=== PATIENT | female | born 1955 | race Caucasian/White ===

== ENCOUNTER 2019-11-13 10:21 | Emergency (ER) | payer OTHER, SELFPAY ==
--- NOTE | ~2019-11-13 | XR_ITS ---
XR foot RT min 3V DATE: 11/13/2019 10:55 INDICATION: Right foot pain following an injury one week ago TECHNIQUE: 4 views COMPARISON: None FINDINGS: There is plantar and minimal posterior calcaneal enthesopathy. There is moderately prominent osteoarthritic change at the first metatarsophalangeal joint. There is hallux valgus and bunion deformity. No fracture, dislocation, periosteal reaction or bone destruction is detected. IMPRESSION: Osteoarthritis at first metatarsophalangeal joint Calcaneal enthesopathy Hallux valgus and bunion deformity Reviewed, dictated and finalized at location A.
[2019-11-13 10:43] VITALS: BP 128/89; PULSE 62; RESP 16; TEMP 37.1; O2SAT 99
--- NOTE | 2019-11-13 11:02 | ED.LOWEXIN ---
HPI - Extremity Injury (Lower) General Chief Complaint: Extremity Injury, Lower Stated Complaint: Fall right ankle/foot Time Seen by Provider: 11/13/19 11:07 Source: patient and RN notes reviewed Mode of arrival: ambulatory Limitations: no limitations History of Present Illness HPI Narrative: 63-year-old female who presents to express care with complaints of pain to the dorsal aspect of her right foot along distal 3rd,4th and 5th metatarsal and upper toes after rolling her foot when she missed last step. Patient states that she hit the corner of her left side of face on banister with bruising noted under left eye, minimal swelling denies any acute pain, dizziness, or any change in her visual acuity. Patient states that her right foot pain is a 10/10, has been applying an enzo wrap to her right foot and has taken Ibuprofen. Patient is on Coumadin therapy and cautioned patient that she should not take Ibuprofen or Aleve, only use Tylenol for her discomfort. patient is able to put weight on right foot but can only stand partial weight bearing at this time without acute pain. MD complaint: foot injury (right ) Onset (ago): week(s) (1) Injury: Right: foot Type of Injury: other (rolled right foot) Place: home Severity: severe Severity scale (1-10): >10 Relieving factors: rest Exacerbating factors: weight bearing and movement Context: fall Associated symptoms: swelling and able to partially bear weight Other symptoms: other (bruising under left eye) Treatments prior to arrival: bandage (enzo) and NSAIDS Related Data Home Medications Medication Instructions Recorded Confirmed albuterol sulfate INHALATION 11/13/19 albuterol sulfate [Ventolin HFA] INHALATION 11/13/19 alprazolam 11/13/19 carvedilol 11/13/19 escitalopram oxalate mg 11/13/19 hydrochlorothiazide 11/13/19 ramipril mg 11/13/19 rosuvastatin mg 11/13/19 warfarin 11/13/19 warfarin 11/13/19 Allergies Allergy/AdvReac Type Severity Reaction Status Date / Time Sulfa (Sulfonamide Allergy Mild Verified 08/28/09 09:22 Antibiotics) prochlorperazine Allergy Unknown Verified 11/06/08 13:00 promethazine Allergy Unknown Verified 11/06/08 13:00 COMPAZINE Allergy Unknown Uncoded 01/15/03 13:41 Review of Systems Review of Systems: Narrative: CONSTITUTIONAL: Denies fever, chills, or sweats. EYES: Denies visual changes, redness, or discharge. ENT: Denies rhinorrhea, congestion, sore throat, or otalgia. CARDIOVASCULAR: Denies chest pain, palpitations, or edema. RESPIRATORY: Denies cough or dyspnea. GASTROINTESTINAL: Denies abdominal pain, nausea, vomiting, or diarrhea. GENITOURINARY: Denies dysuria or hematuria. SKIN: Denies rash or itching. MUSCULOSKELETAL: Denies back pain, joint pain, or myalgia, positive for dorsal lateral aspect of right foot pain from rolling right foot. NEUROLOGIC: Denies headache, numbness, or weakness. PSYCHIATRIC: Denies anxiety or depression. All systems reviewed & are unremarkable except as noted in HPI and below PMFSH Past Medical History Medical History (Updated 11/13/19 @ 12:01 by Sandra Childers NP) Angina pectoris, unspecified Anxiety and depression Asthma History of Coumadin therapy Hyperlipidemia Hypertension Sleep apnea Surgical History Surgical History (Updated 11/13/19 @ 12:01 by Sandra Childesr NP) H/O tubal ligation History of aortic valve replacement Social History Social History (Updated 11/13/19 @ 12:16 by Sandra Childers NP) Smoking packs per day: 0.25 Smoking cigarettes per day: 5.0 Years smoked: 20 Smoking pack-years: 5.00 Smoking status: Current every day smoker Tobacco type: cigarettes Living arrangements: with family Gender identity (if verbalized by the patient): Female Comments At time of signature, agree with nursing past medical, surgical, social history. There is no relevant family history pertinent to the presenting complaint Exam Narrative: Exam Narrative: GEN
== END 2019-11-13 11:30 | disposition home or self-care (01) ==
PROVIDERS: Emergency Provider Registered Nurse; PCP Family Medicine
DX: S93.601A Unspecified sprain of right foot, initial encounter (principal); F41.9 Anxiety disorder, unspecified; F32.9 Major depressive disorder, single episode, unspecified; E78.5 Hyperlipidemia, unspecified; I10 Essential (primary) hypertension; G47.30 Sleep apnea, unspecified; Z79.01 Long term (current) use of anticoagulants; Z95.2 Presence of prosthetic heart valve; F17.210 Nicotine dependence, cigarettes, uncomplicated; M19.071 Primary osteoarthritis, right ankle and foot; M77.31 Calcaneal spur, right foot; M20.11 Hallux valgus (acquired), right foot; M21.611 Bunion of right foot; X50.9XXA Other and unspecified overexertion or strenuous movements or postures, initial encounter
CPT/HCPCS: 73630; 99213; G0463

== ENCOUNTER 2021-07-01 10:38 | Outpatient (CLI) | payer OTHER, SELFPAY ==
--- NOTE | ~2021-07-01 | US_ITS ---
EXAMINATION: US pelvic complete w TV DATE: 07/01/2021 11:49 INDICATION: Vaginal discharge TECHNIQUE: Multiple transabdominal and endovaginal sonographic images of the pelvis were obtained. COMPARISON: None. FINDINGS: The uterus measures 7.2 x 3.4 x 3.7 cm. The endometrial complex measures 4 mm. There is a s mall amount of fluid in the endometrial canal. The left ovary is not visualized however no left adnex al abnormality is seen. The right ovary measures 2.2 x 1.6 x 1.5 cm. There is normal vascular flow in the right ovary. There is no free fluid in the pelvis. IMPRESSION: 1. Small amount of fluid in the endometrial canal of unclear etiology or significance. Reviewed, dictated and finalized at location A. ER CARE CASE MANAGER IMPRESSION: 1. Small amount of fluid in the endometrial canal of unclear etiology or signif icance.
== END 2021-07-01 10:39 | disposition home or self-care (01) ==
LOC: ANHIMG 10:42
PROVIDERS: PCP Family Medicine; Visit Provider Family Medicine
DX: N93.9 Abnormal uterine and vaginal bleeding, unspecified (principal)
CPT/HCPCS: 76830; 76856

== ENCOUNTER 2021-09-28 00:18 | Day surgery (SDC) | payer OTHER, SELFPAY ==
--- NOTE | 2021-09-24 12:25 | PM.IMHP ---
H&P: HPI History of Present Illness Date/Time: 09/24/21 12:25 She had brown dark bleeding for about a year but recently stopped after recent pap smear. No pelvic pain Chief Complaint: Postmenopausal bleeding Review of Systems Review of Systems: All systems reviewed & are unremarkable except as noted in HPI and below PMFSH Past Medical History Medical History Angina pectoris, unspecified Anxiety and depression Asthma GABRIELA (generalized anxiety disorder) History of Coumadin therapy History of CVA (cerebrovascular accident) Hyperlipidemia Hypertension detention (current) use of anticoagulants MDD (major depressive disorder), recurrent episode Melanoma Missed x3 OCD (obsessive compulsive disorder) Sleep apnea Tobacco abuse Vaginal delivery x3 Surgical History Surgical History H/O tubal ligation History of aortic valve replacement 2010, mechanical heart valve History of surgical removal of lesion 2 spots for skin cancer removed Family History Family History Son Asthma Other Asthma cousin Mother Leukemia Hypertension Sibling Hypertension brother Other Lung cancer Social History Social History Social History: Smoking status: Current every day smoker Tobacco type: cigarettes Second hand tobacco smoke exposure: Yes Alcohol intake: current Alcohol use details: 2 drinks daily Substance use: never Substance use type: does not use Gender identity (if verbalized by the patient): Female Sexual Orientation (if Verbalized by the Patient): Straight or Heterosexual Agree to blood products: Yes Meds Home Medications and Allergies Home Medications Medication Instructions Recorded Confirmed Type escitalopram oxalate 20 mg tablet 20 mg PO DAILY #90 tablet 08/05/20 09/21/21 Rx warfarin 2 mg tablet 2 mg PO DAILY #90 tablet 10/03/20 09/21/21 Rx ramipril 10 mg capsule 10 mg PO BID #180 cap 11/04/20 09/21/21 Rx alprazolam 0.5 mg tablet 0.5 mg PO TID #90 tablet 02/17/21 09/21/21 Rx aripiprazole 5 mg tablet 5 mg PO DAILY 02/24/21 09/21/21 History albuterol sulfate 90 mcg/actuation 2 puff INHALATION Q4H PRN #18 g 04/10/21 09/21/21 Rx aerosol inhaler fluoxetine 40 mg capsule 40 mg PO DAILY 07/15/21 09/21/21 History magnesium PO 07/15/21 09/21/21 History melatonin 5 mg capsule mg PO 07/15/21 09/21/21 History carvedilol 25 mg tablet See Rx Instructions .ROUTE 07/29/21 09/21/21 Rx .COMPLEX #270 tablet montelukast 10 mg tablet 10 mg PO QHS #30 tablet 07/29/21 09/21/21 Rx budesonide-formoterol HFA 80 1 puff INHALATION Q12H #10.2 g 08/17/21 09/21/21 Rx mcg-4.5 mcg/actuation aerosol inhaler rosuvastatin 10 mg tablet 10 mg PO DAILY #90 tablet 08/21/21 09/21/21 Rx furosemide 20 mg tablet See Rx Instructions .ROUTE 08/31/21 09/21/21 Rx .COMPLEX #30 tablet Allergies Allergy/AdvReac Type Severity Reaction Status Date / Time prochlorperazine Allergy Mild vision Verified 09/21/21 11:08 blurred promethazine Allergy Mild vision Verified 09/21/21 11:08 blurred Sulfa (Sulfonamide Allergy Mild Abdominal Verified 09/21/21 11:08 Antibiotics) Pain, N/V COMPAZINE Allergy Mild vision Uncoded 06/23/21 10:25 blurred Exam Const: General: healthy appearing, no acute distress, alert and awake Resp: Auscultation: clear to auscultation bilaterally Cardio: Rate: regular rate Rhythm: regular rhythm GI: Inspection: non-distended GI Palp: Yes Soft to palpation and No Tenderness to palpation present (GI) : Bimanual exam- vagina & uterus: normal bimanual exam, uterine size normal, uterine mobility normal, non-tender and soft Bimanual Exam- Adnexa, other: normal adnexae, no masses and No a
[2021-09-28 08:13] VITALS: BMI 30.2
--- NOTE | 2021-09-28 08:23 | PC.NURSE ---
Report to the Outpatient Waiting Room, entrance under the green pavilion located off [facility], at time _1215__ on date _06-26-2801_. OR Time: __1415__. - You and your visitor will be asked a series of questions to screen for COVID 19 for your protection. - A mask is required within the hospital. Preoperative COVID Testing Requirements: No COVID Test needed if: (proof is required; if not received patient will have Rapid Test prior to entry) - Patient has received COVID Vaccine at least 14 days prior to procedure date or - Patient has positive COVID test result within last 90 days of surgery date. COVID Test needed if above criteria is not met If not COVID vaccinated a COVID test must be conducted within 72 hours of surgery and patient is asked to isolate self from time of testing until procedure. You will go to the [facility] for your COVID testing. The [facility] is located at the corner of [address] [facility]. You will only be called if COVID results are positive and your surgeon may reschedule your elective surgery date. Patients may have clear liquids (water, carbonated beverages, clear teas, apple juice) until 3 hours prior to surgery with a maximum of 20 ounces. - No food from midnight until time of surgery - Infants may have breast milk until 4 hours before surgery, formula 6 hours prior to surgery. - Children will be allowed to drink immediately following surgery. If applicable, please bring a bottle or sippy cup to assist with drinking. Juice, water, soda, and popsicles are readily available. For infants on formula, please bring formula the day of surgery. Pacifiers are allowed. Take the following medications with a SIP of water the morning of surgery: __Alprazolam, Aripiprazole, Carvidilol, Escitalopram, Fluoxetine Medications to discontinue per physician Stopped Warfarin [id number] Date to take last dose Please no make-up, nail surinamese, hairspray, perfume, deodorant, or body powder the day of surgery. No jewelry (including any body piercings) or valuables the day of surgery, leave them at home. Please take a shower or bath the night before, or the morning of, surgery with an antibacterial soap. Wear comfortable, loose fitting clothing. Children are encouraged to wear pajamas. - Jewelry must be removed prior to entering the operating room. Rings and piercings that are not removed may be cut off. - The hospital will not accept responsibility for valuables. - Please leave all valuables, including medications, at home the day of surgery. If you are going home after surgery, a licensed concrete mixing truck driver must drive you home. - NO public transportation without another adult. - We recommend that an adult stay with you for 24 hours following discharge. - We also recommend that you do not drive, make important decision, drink alcoholic beverages, or take any drugs that were not prescribed by your health care provider for at least 24 hours after your discharge time. For Pediatric surgeries, we recommend two adults accompany the child home (only one inside the building at this time). One visitor will be allowed to accompany the patient into the hospital. Patients visitor will be instructed to remain with patient at all times or leave the building. We will allow the visitor to come back to the postoperative area when patient is ready. Follow any additional instructions given to you from your surgeon. Telephone instructions given to Patient____and asked if any additional questions and then verbalized understanding. Patient advised to call surgeon office or pre surgery nurse liaison [phone] if any additional questions.
--- NOTE | 2021-09-28 11:44 | WPDANESEPPF ---
Anes - Initial Pre Proc Eval Procedure: Operation Date: 09/28/21 14:15 Proposed Procedures p Hysteroscopy with Dilation and Curettage - Rose Marie Leslie MD Date/Time: 09/28/21 11:44 Surgeon: Rose Marie Leslie MD Pre Op Diagnosis: Post Menopausal Bleeding Patient Data Age: 65 Gender: F Height: 1.57 m Weight: 75 kg Allergies Allergy/AdvReac Type Severity Reaction Status Date / Time prochlorperazine Allergy Mild vision Verified 09/28/21 08:08 blurred promethazine Allergy Mild vision Verified 09/28/21 08:08 blurred Sulfa (Sulfonamide Allergy Mild Abdominal Verified 09/28/21 08:08 Antibiotics) Pain, N/V Home Medications Medication Instructions Recorded Confirmed Type escitalopram oxalate 20 mg tablet 20 mg PO DAILY #90 tablet 08/05/20 09/28/21 Rx warfarin 2 mg tablet 2 mg PO DAILY #90 tablet 10/03/20 09/28/21 Rx ramipril 10 mg capsule 10 mg PO BID #180 cap 11/04/20 09/28/21 Rx aripiprazole 5 mg tablet 5 mg PO DAILY 02/24/21 09/28/21 History albuterol sulfate 90 mcg/actuation 2 puff INHALATION Q4H PRN #18 g 04/10/21 09/28/21 Rx aerosol inhaler fluoxetine 40 mg capsule 40 mg PO DAILY 07/15/21 09/28/21 History melatonin 5 mg capsule 5 mg PO HS 07/15/21 09/28/21 History carvedilol 25 mg tablet See Rx Instructions .ROUTE 07/29/21 09/28/21 Rx .COMPLEX #270 tablet budesonide-formoterol HFA 80 1 puff INHALATION Q12H #10.2 g 08/17/21 09/28/21 Rx mcg-4.5 mcg/actuation aerosol inhaler furosemide 20 mg tablet See Rx Instructions .ROUTE 08/31/21 09/28/21 Rx .COMPLEX #30 tablet alprazolam 1 mg PO TID 09/28/21 09/28/21 History enoxaparin 80 mg SUBCUT BID 09/28/21 09/28/21 History hydrocodone-acetaminophen 1 tablet PO Q4H PRN #10 tablet 09/28/21 Rx ibuprofen 600 mg PO Q6H PRN #60 tablet 09/28/21 Rx montelukast 10 mg PO QAM 09/28/21 09/28/21 History rosuvastatin 10 mg PO QPM 09/28/21 09/28/21 History Patient hx anesthesia problems: none Family hx anesthesia problems: none Results Review: All pre-operative results and documents have been reviewed as part of the pre-operative evaluation. 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 MDD (major depressive disorder), recurrent episode Melanoma Missed x3 OCD (obsessive compulsive disorder) Tobacco abuse Vaginal delivery x3 Surgical History Surgical History H/O tubal ligation History of aortic valve replacement 2010, mechanical heart valve History of surgical removal of lesion 2 spots for skin cancer removed Family History Family History Son Asthma Other Asthma cousin Mother Leukemia Hypertension Sibling Hypertension brother Other Lung cancer Social History Social History Social History: Years smoked: 20 Smoking status: Current every day smoker Tobacco type: cigarettes Second hand tobacco smoke exposure: Yes Alcohol intake: current Drinks per week: 14 Alcohol use details: 2 drinks daily Substance use: never Substance use type: does not use Living arrangements: with family Gender identity (if verbalized by the patient): Female Sexual Orientation (if Verbalized by the Patient): Straight or Heterosexual Spiritual care concerns: No Agree to blood products: Yes Anes - Eval Final PreProcedure Day of Procedure 09/28/21 11:44 Patient weight: obese Heart: regular rate and rhythm Lungs: clear to auscultation and normal air movement Airway: Mallampati scale class II Neurological: alert and oriented Last oral intake:
[2021-09-28 12:11] VITALS: BP 148/90; PULSE 81; RESP 20; TEMP 36.5; O2SAT 96
--- NOTE | 2021-09-28 12:32 | WPDHPUPDATE1 ---
History and Physical Update Update Date/Time: 09/28/21 12:32 History and Physical has been reviewed, including an updated exam of the patient. There are NO changes in the patient's condition. Risks, benefits, and alternatives have been discussed and questions answered. Patient agrees to proceed with procedure.
[2021-09-28] MEDS: LACTATED RINGERS 1,000 ML 30 ML IV CONT (12:40)
--- NOTE | 2021-09-28 12:42 | W.PM.PROC2 ---
Procedure Note - Detailed Date of Procedure 09/28/21 Pre-op Diagnosis Post Menopausal Bleeding Post-op Diagnosis Same Procedure Performed D&C, hysteroscopy Surgeon Rose Marie Leslie MD Anesthesia MAC Indications Postmenopausal bleeding Findings normal endometrial cavity with possible small scarring but no obvious polyp or fibroid, both tubal ostia visible Description of Procedure She was taken to the operating room where she was sedated and placed in the dorsal lithotomy position. A speculum was placed in the vagina. The anterior lip of the cervix was grasped with a single-tooth tenaculum. The uterus sounded to 8 cm. The cervix was dilated to allow passage of the hysteroscope, which revealed normal endometrial cavity with possible small scarring at the left of the fundus. No obvious polyps or fibroids were visible. A sharp curettage was performed and the curettings sent for pathologic evaluation. A 2nd look was taken with the hysteroscope. The scarring visible at the left fundus was now gone, and both tubal ostia were identified at this point. Prior to the curettage, only the right tubal ostia had been identifiable. The hysteroscope was removed. The tenaculum was removed. The cervix was found to be hemostatic. All instruments were removed from the vagina. She tolerated the procedure well. Sponge, lap, and instrument counts were correct x2. She was taken to the recovery room in stable condition. Estimated Blood Loss 5 Drains No Packing No Pathology Yes Complications No immediate complications Condition Stable Disposition PACU
[2021-09-28 13:01] LABS: Anion Gap 7 mmol/L (8-16); Blood Urea Nitrogen 8 mg/dL (7-17); Calcium 9.4 mg/dL (8.4-10.2); Carbon Dioxide 33 mmol/L (22-30); Chloride 92 mmol/L (98-107); Estimated CRCL calculation 66 ml/min; Estimated Glomerular Filt Rate > 60; Glucose 109 mg/dL (65-110); Potassium 3.8 mmol/L (3.4-5.0); Sodium 132 mmol/L (137-145)
[2021-09-28 13:11] LABS: INR 1.1; Prothrombin Time 13.3 Seconds (11.1-14.7)
[2021-09-28 13:12] LABS: Partial Thromboplastin Time 26.2 SECONDS (22.3-36.8)
[2021-09-28 14:05] VITALS: BP 125/67; PULSE 79; RESP 14; O2SAT 92
[2021-09-28 14:35] VITALS: BP 116/69; PULSE 78; RESP 14
[2021-09-28 14:55] VITALS: BP 119/71; PULSE 76; RESP 14
== END 2021-09-28 15:05 | disposition home or self-care (01) ==
PROVIDERS: Anesthesiology; PCP Family Medicine; Visit Provider Obstetrics & Gynecology
PROC: 0U5B8ZZ Destruction of Endometrium, Via Natural or Artificial Opening Endoscopic (ICD-10-PCS; CPT 58563; principal; 2021-09-28 14:15)
DX: N95.0 Postmenopausal bleeding (principal); N84.0 Polyp of corpus uteri; Z79.01 Long term (current) use of anticoagulants; Z79.51 Long term (current) use of inhaled steroids; F41.8 Other specified anxiety disorders; J45.909 Unspecified asthma, uncomplicated; I20.9 Angina pectoris, unspecified; I10 Essential (primary) hypertension; E78.5 Hyperlipidemia, unspecified; F33.9 Major depressive disorder, recurrent, unspecified; F42.9 Obsessive-compulsive disorder, unspecified; Z85.820 Personal history of malignant melanoma of skin; Z95.2 Presence of prosthetic heart valve; F17.210 Nicotine dependence, cigarettes, uncomplicated; E66.9 Obesity, unspecified; Z68.30 Body mass index [BMI] 30.0-30.9, adult
CPT/HCPCS: 58558; 36415; 80048; 85610; 85730; 88305; J2704; J3010; J7120

== ENCOUNTER → 2023-01-21 09:47 | Outpatient (CLI) | payer OTHER, SELFPAY ==
--- NOTE | ~2023-01-21 | MM_ITS ---
EXAMINATION: MM screening angela BI w lionel HISTORY: Screening mammogram TECHNIQUE: Craniocaudal and mediolateral oblique 3-D tomosynthesis images were obtained and synthetic 2-D images were generated. CAD analysis was submitted and interpreted. COMPARISON: October 24, 2018, January 04, 2017 bilateral screening mammogram examinations BREAST PARENCHYMAL COMPOSITION: The breasts are heterogeneously dense, which may obscure small masses . FINDINGS: There is no evidence of suspicious mass, calcification, or architectural distortion to sugg est malignancy in either breast. There has been no suspicious interval change. IMPRESSION: 1. No mammographic evidence of malignancy. 2. Recommend routine screening mammography in one year. BI-RADS Category 1: Negative Reviewed, dictated and finalized at location A.
--- NOTE | ~2023-01-21 | DEXA_ITS ---
Bone Density Report Name: ANTONETTE CORREA Age: 67 Sex: Female Ethnicity: White Date of : 1955 Indication: postmenopausal; screening for osteoporosis; height loss; asthma or emphysema; Referring Provider: JEREMY CHAN Study: Bone densitometry was performed. Exam Date: January 21, 2023 Accession number: [id number] Bone Density: Region BMD T-score Z-score Classification AP Spine (L1-L4) 0.939 -1.0 0.9 Normal Femoral Neck (Left) 0.679 -1.5 0.0 Osteopenia Total Hip (Left) 0.817 -1.0 0.3 Normal Femoral Neck (Right) 0.713 -1.2 0.3 Osteopenia Total Hip (Right) 0.879 -0.5 0.8 Normal Total Hip Mean 0.848 -0.8 0.6 Normal World Health Organization criteria for BMD impression classify patients as: Normal (T-score at or above -1.0), Osteopenia (T-score between -1.0 and -2.5), or Osteoporosis (T-score at or below -2.5). 10-year Fracture Risk(1): Major Osteoporotic Fracture 8.9% Hip Fracture 1.0% Reported Risk Factors: [place] (), Neck BMD=0.679, BMI=29.5 (1) FRAX(R) Version 3.08. Fracture probability calculated for an untreated patient. Fracture probability may be lower if the patient has received treatment. Clinical Information Provided by Patient: Has the following medical conditions: Asthma or Emphysema Patient maximum height was 64 Menopause Age: 51 Onset of menses at age 17 Number of children 3 Impression: The patient has low bone mass, based on the Left Femoral Neck T-score. The patient has an estimated ten-year risk of hip fracture of 1% and an estimated ten-year risk of major fracture of 8.9%, based on the WHO FRAX algorithm. Discussion: BONE DENSITY IS LOW AT ONE OR MORE SKELETAL SITES. This patient's lowest T-score is low at one or more skeletal sites. It meets the World Health Organization's (WHO) criteria for ?low bone mass? (T-score between -1.0 and -2.5). The patient's 10-year risk of fracture as calculated by FRAX is less than the threshold where pharmacological therapy is recommended by the National Osteoporosis Foundation (NOF). However, all treatment decisions require clinical judgment and consideration of individual patient factors, including patient preferences, comorbidities, previous drug use, risk factors not captured in the FRAX model (e.g., frailty, falls, vitamin D deficiency, increased bone turnover, interval significant decline in bone density) and possible under or overestimation of fracture risk by FRAX. The patient should follow a healthful lifestyle (good nutrition with adequate calcium and vitamin D, and appropriate weight-bearing exercise). Follow-Up: Consider repeating this study in 2 to 3 years to reassess this patient's status, or sooner if there is some new clinical indication. Reported by: TICO on 01/21/2023 10:13:00 AM.
== END ==
PROVIDERS: PCP Family Medicine; Visit Provider Nurse Practitioner Gerontology
DX: Z12.31 Encounter for screening mammogram for malignant neoplasm of breast (principal); Z78.0 Asymptomatic menopausal state; M85.852 Other specified disorders of bone density and structure, left thigh; M85.851 Other specified disorders of bone density and structure, right thigh
CPT/HCPCS: 77063; 77067; 77080